=== PATIENT | male | born 1950 | race African-American/Black ===

== ENCOUNTER 2018-09-10 23:09 | Inpatient (IN) | payer OTHER ==
[~2018-09-10] VITALS: Ht 175.3 cm; Wt 123.5 kg
[2018-09-10] MEDS: LEVOFLOXACIN 750 MG /D5W 150ML PIGGYBACK IV ONE (00:45)
[2018-09-10] MEDS ORDERED: ONDANSETRON HCL/PF 4 MG/2 ML VIAL ONE (23:13)
--- NOTE | 2018-09-10 23:15 | NUR ---
PT BIB [facility]. COMP OF HAVING "SOB AND APNEA ON ROUTE". PT ALERT. RESPONSIVE TO PAIN AND VERBAL CUES. NO PAIN NOTED. MD AWARE OF PT CONDITION. MD AT BEDSIDE FOR EVAL.
[2018-09-10] MEDS ORDERED: NTG 50 MG/D5W250 ML BOTTL 250 ML IV ONE ×2 (23:25→23:30)
[2018-09-10] MEDS ORDERED: LEVOFLOXACIN 750 MG /D5W 150ML 150 ML IV ONE (23:26)
[2018-09-10] MEDS ORDERED: AZTREONAM 1 G VIAL ONE (23:26)
--- NOTE | 2018-09-10 23:27 | NUR ---
Note undone in EDM - 09/10/18 at 2355 by GZAKARYAN PT BIB [facility]. COMP OF HAVING "SOB AND APNEA ON ROUTE". PT ALERT. RESPONSIVE TO PAIN AND VERBAL CUES. NO PAIN NOTED. MD AWARE OF PT CONDITION. AWAITING EVAL.
[2018-09-10] MEDS ORDERED: AZTREONAM 1 G in IV NS 0.9% 100 ML IV ONE (23:30)
[2018-09-10] MEDS ORDERED: ONDANSETRON HCL/PF 4 MG/2 ML VIAL IVP ONE (23:30)
[2018-09-10 23:39] VITALS: BP 152/88
[2018-09-10 23:41] LABS: BASOPHILS # (AUTO) 0.1 /CMM (0.0-0.2); BASOPHILS % (AUTO) 0.9 % (0.0-2.0); EOSINOPHILS % (AUTO) 5.3 % (0.0-6.0); HEMATOCRIT 46 % (39-51); HEMOGLOBIN 14.8 g/dL (13.5-17.5); LYMPHOCYTES # (AUTO) 2.5 /CMM (0.8-4.8); LYMPHOCYTES % (AUTO) 36.8 % (20.0-44.0); MEAN CORPUSCULAR HGB CONC 32 g/dl (31.0-36.0); MEAN CORPUSCULAR VOLUME 87 fL (80-96); MONOCYTES # (AUTO) 0.6 /CMM (0.1-1.30); MONOCYTES % (AUTO) 8.5 % (2.0-12.0); NEUTROPHILS # (AUTO) 3.3 /CMM (1.8-8.9); NEUTROPHILS % (AUTO) 48.5 % (43.0-81.0); PLATELET COUNT (AUTO) 196 /CMM (150-450); RED BLOOD CELL COUNT(AUTO) 5.27 MIL/uL (4.5-6.0); WHITE BLOOD COUNT (AUTO) 6.8 K/uL (4.3-11.0)
--- NOTE | 2018-09-10 23:45 | NUR ---
PT ALERT. RESPONSIVE. NO ACUTE DISTRESS AT THIS TIME. BP STABLE ON 75MCG NITRO
[2018-09-10 23:48] LABS: CARBON DIOXIDE 25 mmol/L (21-32); CHLORIDE 102 mmol/L (98-107); CREATININE 1.7 mg/dL (0.6-1.3); GLUCOSE 275 mg/dL (74-106); POTASSIUM 3.6 mmol/L (3.5-5.1); SODIUM SERUM 138 mmol/L (136-145); UREA NITROGEN, BLOOD 21 mg/dL (7-18)
[2018-09-11] VITALS (46 sets, daily range): BP systolic 124–175; BP diastolic 59–123
[2018-09-11 00:04] LABS: APPEARANCE,URINE Cloudy (CLEAR); BILIRUBIN,URINE Negative (NEGATIVE); BLOOD, URINE Moderate Ery/uL (NEGATIVE); COLOR,URINE Yellow (YELLOW); KETONES,URINE Trace (NEGATIVE); LEUKOCYTE ESTERASE ,URINE Negative (NEGATIVE); NITRITE, URINE Negative (NEGATIVE); PH,URINE 5.5 (5.0-8.0); PROTEIN,URINE >=300 mg/dl (NEGATIVE); UGLUCOSE Negative (NEGATIVE); UROBILINOGEN,URINE 0.2 EU/dL (0.2)
[2018-09-11 00:05] LABS: ALANINE AMINOTRANSFERASE 17 U/L (12-78); ALBUMIN 3.4 g/dL (3.4-5.0); ALKALINE PHOSPHATASE 103 U/L (46-116); ASPARTATE AMINOTRANSFERASE 16 U/L (15-37); B-TYPE NATRIURETIC PEPTIDE 739 PG/ML (0-125); BILIRUBIN,DIRECT 0.1 mg/dL (0.0-0.2); BILIRUBIN,TOTAL 0.3 mg/dL (0.2-1.0); TOTAL PROTEIN, SERUM 7.7 g/dL (6.4-8.2)
[2018-09-11] MEDS ORDERED: ASPIRIN 325 MG TABLET ONE (00:10)
[2018-09-11] MEDS: LEVOFLOXACIN 750 MG /D5W 150ML PIGGYBACK IV ONE (00:10)
--- NOTE | 2018-09-11 00:13 | NUR ---
PT ALERT AND RESPONSIVE AT THIS TIME. BP STABLE.
[2018-09-11 00:25] LABS: BACTERIA,URINE Few /HPF (None Seen); RBC,URINE 21-50 /HPF (0-2); SQUAMOUS EPITHELIAL CELL,UR Rare /HPF (None Seen)
[2018-09-11] MEDS ORDERED: ASPIRIN 325 MG TABLET PO ONE (00:30)
[2018-09-11 01:29] LABS: ABG BASE EXCESS 0.3 mmol/L; ABG OXYGEN SATURATION 99.5 % (92.0-98.5); ABG PCO2 58.1 mmHg (35.0-45.0); ABG PO2 421.6 mmHg (75.0-100.0); AaDO2 233.3 mmHg; COHb 0.6 % (0.5-1.5); MetHb 0.6 % (0.0-1.5); O2Hb 98.3 % (94.0-97.0); SITE, ABG Right Radial
--- NOTE | 2018-09-11 01:41 | NUR ---
REPORT GIVEN TO FIDELINA TURNER.
[2018-09-11] MEDS: HEPARIN SODIUM, PORCINE 5000 UNITS/1 ML VIAL SQ SCH ×2 (02:00→09:02)
[2018-09-11] MEDS ORDERED: ACETAMINOPHEN 325 MG TABLET PO PRN (02:00)
[2018-09-11] MEDS ORDERED: ZOLPIDEM TARTRATE 5 MG TABLET PO PRN (02:00)
[2018-09-11] MEDS ORDERED: ONDANSETRON HCL/PF 4 MG/2 ML VIAL IVP PRN (02:00)
[2018-09-11] MEDS ORDERED: ALBUTEROL FS 2.5 MG/0.5 ML VIAL.NEB NEB PRN (02:30)
[2018-09-11] MEDS ORDERED: NTG 50 MG/D5W250 ML BOTTL 250 ML IV PRN ×2 (02:30→04:30)
--- NOTE | 2018-09-11 02:30 | NUR ---
EDITOR SOUND RCD PT FROM ER W/DX CHF. PT A/O x4. NSR ON MONITOR. NITRO DRIP AT 35 MCG/MIN TO MAINTAIN SBP <160. ON BIPAP 15/5 16 40%. PT DENIES SOB OR CHEST PAIN.
[2018-09-11] MEDS ORDERED: TERA5CAP4 PO (02:39)
[2018-09-11] MEDS ORDERED: ASPI-1169 PO (02:39)
[2018-09-11] MEDS ORDERED: VENL37.591 PO (02:39)
[2018-09-11] MEDS ORDERED: METF500T7 PO (02:39)
[2018-09-11] MEDS ORDERED: HYDR-4076 PO (02:39)
[2018-09-11] MEDS ORDERED: FINA5TAB11 PO (02:39)
[2018-09-11] MEDS ORDERED: CARV12.5 PO (02:39)
[2018-09-11] MEDS ORDERED: ATOR20TA PO (02:39)
[2018-09-11] MEDS ORDERED: RANI150T8 PO (02:39)
[2018-09-11] MEDS ORDERED: LISI1TAB13 PO (02:39)
[2018-09-11] MEDS ORDERED: CLON1TAB12 PO (02:39)
[2018-09-11] MEDS ORDERED: AMLO10TA7 PO (02:39)
[2018-09-11] MEDS ORDERED: ALLO100T PO (02:39)
[2018-09-11] MEDS ORDERED: IV NS 0.9% 250 ML IV PRN (04:30)
[2018-09-11 05:10] LABS: MAGNESIUM 1.9 mg/dL (1.8-2.4); PHOSPHORUS 3.4 mg/dL (2.5-4.9)
[2018-09-11 05:13] LABS: THYROID STIMULATING HORMONE 0.843 uIU/mL (0.358-3.74)
[2018-09-11] MEDS ORDERED: AZTREONAM 1 G VIAL ONE (05:34)
[2018-09-11] MEDS: AZTREONAM 1 G in IV NS 0.9% 100 ML IV SCH ×2 (05:40→12:21)
[2018-09-11] MEDS ORDERED: DEXTROSE 50%-WATER 50 ML DISP.SYRIN IV PRN (06:00)
[2018-09-11] MEDS ORDERED: clonazePAM 1 MG TABLET PO PRN (06:00)
[2018-09-11] MEDS ORDERED: PANTOPRAZOLE 40 MG VIAL IV SCH (07:30)
--- NOTE | 2018-09-11 07:58 | NUR ---
SUPERVISOR HARVESTING: pt.is A/Ox3, no pain, no SOB, on Bipap, O2sat. over 94%, SR, on Nitro gtt 55 mcg/m now, SBP 140-150 now, BS 163/ISS+, makes urine, NPO
[2018-09-11] MEDS: INSULIN REGULAR, HUMAN 100 UNIT/ML 3 ML VIAL SQ PRN ×2 (08:10→11:58)
[2018-09-11] MEDS: BLOOD SUGAR DIAGNOSTIC 1 EACH STRIP IN SCH ×3 (08:17→17:38)
--- NOTE | 2018-09-11 08:20 | NUR ---
AUTOMATIC DATA PROCESSING PLANNER: pt.is placed on N/c 4L O2 now by gayatri RT, SBP 136/continue titrate Nitro gtt down
--- NOTE | 2018-09-11 08:30 | NUR ---
GROUP ROOMS COORDINATOR: O2sat. over 95% now, no c/o, no SOB, is in room, updated with pt.current VS, Nitro gtt, I/O, Bipap off, see new orders
--- NOTE | 2018-09-11 08:52 | NUR ---
GRINDER OPERATOR SURFACE TOOL: BP 139/71, HR 59, said: stop Nitro gtt, continue BP PO meds
[2018-09-11] MEDS ORDERED: AMLODIPINE BESYLATE 10 MG TABLET PO SCH (09:00)
[2018-09-11] MEDS ORDERED: FINASTERIDE (5 MG) 5 MG TABLET PO SCH (09:00)
[2018-09-11] MEDS ORDERED: ATORVASTATIN 10 MG TABLET PO SCH (09:00)
[2018-09-11] MEDS ORDERED: ASPIRIN 81 MG TAB.CHEW PO SCH ×2 (09:00)
[2018-09-11] MEDS ORDERED: VENLAFAXINE XR 37.5 MG CAP.SR.24H PO SCH (09:00)
[2018-09-11] MEDS ORDERED: Medication Not On Formulary EA (Lisinopril/Hydrochlorothiazide (Lisinopril-Hctz 20-25 Mg PO SCH (09:00)
[2018-09-11] MEDS ORDERED: FAMOTIDINE (20 MG) 20 MG TABLET PO SCH (09:00)
[2018-09-11] MEDS: FUROSEMIDE 100 MG/10 ML VIAL IV SCH ×3 (09:02→17:25)
[2018-09-11] MEDS: CARVEDILOL 12.5 MG TABLET PO SCH ×2 (09:04→17:25)
[2018-09-11] MEDS: ALLOPURINOL 100 MG TABLET PO SCH ×2 (09:05→17:25)
[2018-09-11] MEDS: hydrALAZINE HCL 25 MG TABLET PO SCH ×2 (09:05→17:24)
--- NOTE | 2018-09-11 09:30 | NUR ---
CALL MANAGER: called to Radiology dept. re CXR order
--- NOTE | 2018-09-11 11:00 | NUR ---
WATER OPERATOR: O2 sat. over 96% on 4L n/c, SBP 131, no pain, is in room, updated with VS, Nitro gtt off, I/O, BS, meds, said: pt.is candidate for transfer, ok to start diet
[2018-09-11] MEDS: HYDROCHLOROTHIAZIDE 25 MG TABLET PO SCH ×2 (11:21→17:25)
[2018-09-11] MEDS: LISINOPRIL (20MG) 20 MG TABLET PO SCH ×2 (11:21→17:24)
--- NOTE | 2018-09-11 12:20 | NUR ---
SEGMENT ASSEMBLER: is notified re pt.current condition, VS, I/O, Nitro gtt off, O2sat., pt.is with [facility]/going for transfer, ordered: ABCharley now, notified RT re resp.setting order
[2018-09-11] MEDS ORDERED: IPRATROPIUM NEB FS 0.5 MG/2.5 ML AMPUL.NEB NEB PRN (13:00)
[2018-09-11] MEDS ORDERED: ENOXAPARIN SODIUM 60 MG/0.6 ML DISP.SYRIN SQ SCH (13:25)
[2018-09-11 13:26] LABS: ABG BASE EXCESS 2.6 mmol/L; ABG OXYGEN SATURATION 97.5 % (92.0-98.5); ABG PCO2 51.5 mmHg (35.0-45.0); ABG PH 7.367 (7.350-7.450); ABG PO2 105.4 mmHg (75.0-100.0); AaDO2 69.8 mmHg; COHb 0.7 % (0.5-1.5); MetHb 0.7 % (0.0-1.5); O2Hb 96.1 % (94.0-97.0); SITE, ABG Left Radial; VENT MODE, BG NASAL CANNULA
--- NOTE | 2018-09-11 14:30 | NUR ---
ELECTRICAL ENGINEERING TECHNOLOGIST: called x2 to [facility] for give report, nobody is answering in the unit
--- NOTE | 2018-09-11 15:00 | NUR ---
INTERNET NETWORK SPECIALIST: full report was given to YUE Truong[facility], [facility], [facility] called back and changed transfer time to 18.00
--- NOTE | 2018-09-11 15:55 | NUR ---
GAUGER CHIEF DELIVERY: called to [facility] to notify transfer time change: unable to reach unit answer
--- NOTE | 2018-09-11 16:19 | NUR ---
SCOOPER: notified [facility] unit: ambulance transfer time at 18.00
--- NOTE | 2018-09-11 17:48 | NUR ---
COMPANY TANKER TRUCK DRIVER: pt.is rest, no any pain, no c/o, SR now 60-72, SBP 149, O2sat. over 98% on 2L n/c, Anali TAO is in room, updated with pt.history, VS, Dx, orders, meds, canceled atbxs/will do gayatri in transfer meds profile
--- NOTE | 2018-09-11 18:29 | NUR ---
ACOUSTIC SENSOR OPERATOR: [facility] called, got last VS, SR 68, RR 19, 95% on 2L n/c, BP 143/68, BS 105, no any pain, pr.refused for bedbath care
--- NOTE | 2018-09-11 19:58 | NUR ---
PLANT TECHNICIAN/CONTROL ROOM OPERATOR. [facility] REPORT GIVEN TO [facility] RN. .PT AWAKE, ALERT, FOLLOW COMMANDS. .VITALS STABLE. DAY SHIFT YUE CUEVAS REPORT GIVEN TO YUE KITCHEN.
[2018-09-11] MEDS ORDERED: TERAZOSIN HCL 5 MG CAPSULE PO SCH (22:00)
[2018-09-13] MEDS ORDERED: LEVOFLOXACIN 750 MG /D5W 150ML 750 MG in PREMIX 1 EA IV SCH ×2
== END 2018-09-11 20:00 | disposition short-term general hospital (02) | DRG 871 ==
LOC: ER 23:13 → ICU 09-11 01:32
PROVIDERS: ADMIT Nurse Practitioner Acute Care
PROC: 5A1935Z Respiratory Ventilation, Less than 24 Consecutive Hours (ICD-10-PCS; principal; 2018-09-11)
DX: A41.9 Sepsis, unspecified organism (principal); I50.43 Acute on chronic combined systolic (congestive) and diastolic (congestive) heart failure; J96.01 Acute respiratory failure with hypoxia; J96.02 Acute respiratory failure with hypercapnia; N17.0 Acute kidney failure with tubular necrosis; J69.0 Pneumonitis due to inhalation of food and vomit; I21.A1 Myocardial infarction type 2; D68.59 Other primary thrombophilia; E87.2 Acidosis; I13.0 Hypertensive heart and chronic kidney disease with heart failure and stage 1 through stage 4 chronic kidney disease, or unspecified chronic kidney disease; Z68.41 Body mass index [BMI] 40.0-44.9, adult; I11.0 Hypertensive heart disease with heart failure; I16.0 Hypertensive urgency; E11.22 Type 2 diabetes mellitus with diabetic chronic kidney disease; E11.65 Type 2 diabetes mellitus with hyperglycemia; G47.33 Obstructive sleep apnea (adult) (pediatric); I25.2 Old myocardial infarction; J45.909 Unspecified asthma, uncomplicated; I25.10 Atherosclerotic heart disease of native coronary artery without angina pectoris; N18.9 Chronic kidney disease, unspecified; Z79.82 Long term (current) use of aspirin; Z79.84 Long term (current) use of oral hypoglycemic drugs; Z79.899 Other long term (current) drug therapy; Z87.891 Personal history of nicotine dependence; E66.01 Morbid (severe) obesity due to excess calories
CPT/HCPCS: 36415; 36600; 71045-TC; 80048-TC; 80076-TC; 81000-TC; 82803-TC; 82962-TC; 83605-TC; 83735-TC; 83880; 84100-TC; 84443-TC; 84484-TC; 85025-TC; 85730-TC; 87040-TC; 87081-TC; 93307-TC; 94799-TC; A4216; C9113; G0378; J1644; J1650; J1815; J1940; J1956; J2405; J3490; J7030; J7050